=== PATIENT | male | born 1930 | race Caucasian/White ===

== ENCOUNTER → 2016-10-03 | Outpatient (CLI) | payer MEDICARE ==
[2015-02-17 14:30] VITALS: BP 93/53
[~2016-10-03] MED LIST: AMIO200T PO; CARV12.5 PO; CARV25TA2 PO; DABI150C PO; FINA5TAB4 PO; FURO-68 PO; GEMF600T3 PO; GLIM2TAB2 PO; HYDR-2666 PO; LOSA50TA2 PO; OLME1TAB3 PO; ONDA4TAB10 SL; RIVA10TA PO
--- NOTE | 2016-10-03 14:30 | KCIC ---
PROCEDURE [facility] CXR. HISTORY Amiodarone therapy monitoring COMPARISON August 10, 2015. FINDINGS Chronic diffuse interstitial lung disease is seen which is stable. No new lung infiltrate or pleural effusion or lung mass or pneumothorax is seen. Mild cardiomegaly is again evident and is stable. A 3 lead pacemaker is again noted. The pulmonary vasculature, mediastinum and both sharif are unremarkable. The osseous structures appear intact. IMPRESSION Stable chest x-ray. Electronically signed by: Ellis Aguilar MD (Oct 03, 2016 14:28:00)
== END | disposition home or self-care (01) ==
LOC: KCIC 13:33
PROVIDERS: ATTEND Internal Medicine Cardiovascular Disease
DX: Z51.81 Encounter for therapeutic drug level monitoring (principal); Z79.899 Other long term (current) drug therapy
CPT/HCPCS: 71020

== ENCOUNTER → 2016-12-06 | Outpatient (CLI) | payer BC, MEDICARE ==
[2015-02-17 14:30] VITALS: BP 93/53
--- NOTE | 2016-12-06 15:57 | KCIC ---
Ultrasound arterial doppler Indication decreased pulses bilateral lower extremities. Bilateral leg pain TECHNIQUE: Multiple transverse sonographic images were obtained of the bilateral lower extremities with use of color Doppler imaging and spectral analysis. FINDINGS: Right leg: There are triphasic waveforms noted in the common femoral artery with biphasic waveforms noted throughout the remaining arteries of the right lower extremity including the deep femoral, superficial femoral, popliteal, posterior tibial, peroneal, anterior tibial, and dorsalis pedis. There is some elevation of flow velocity of the dorsalis pedis that measures 177 cm/s. Left leg: Triphasic waveforms are noted in the common femoral artery. There are biphasic waveforms noted in the deep femoral, superficial femoral, and popliteal arteries. There are also biphasic waveforms in the peroneal, anterior tibial, and dorsalis pedis arteries. Monophasic waveforms however are seen in the posterior tibial artery. No focal elevation of flow velocity to suggest high-grade stenosis. IMPRESSION: No evidence for high-grade stenosis of the bilateral femoropopliteal arterial system. There is however monophasic flow in the left posterior tibial artery which could be due to moderate stenosis. Electronically signed by: Nomi Banks MD (12/06/2016 3:54 PM)
--- NOTE | 2016-12-06 15:58 | KCIC ---
3 views thoracic spine and 3 views lumbar spine dated 12/06/2016. No comparison available. Clinical indication: Chronic back pain and recent falls. FINDINGS: AP lateral and swimmer's views obtained. Sagittal alignment is anatomic. There is mild superior endplate compression deformity of L3. Vertebral body heights are otherwise maintained. Moderate hypertrophic change of the superior and inferior endplates throughout. 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 Pacemaker in place. IMPRESSION: 1. Mild superior endplate compression deformity of L3, possibly acute. If indicated, CT and/or bone scan could provide additional information. 2. Multilevel spondylosis. Electronically signed by: Dominguez Ang MD (12/06/2016 3:56 PM)
== END | disposition home or self-care (01) ==
LOC: KCIC 14:02
PROVIDERS: ATTEND Family Medicine
DX: M54.9 Dorsalgia, unspecified (principal); R09.89 Other specified symptoms and signs involving the circulatory and respiratory systems; G89.29 Other chronic pain; Z91.81 History of falling
CPT/HCPCS: 72072; 72100; 93925